=== PATIENT | female | born 1970 | race Caucasian/White ===

== ENCOUNTER 2021-01-03 13:34 | Outpatient (CLI) | payer OTHER ==
--- NOTE | 2021-01-03 14:06 | RAD ---
EXAM: Two views chest PROVIDED CLINICAL HISTORY: Diagnosis of Covid November 2020. Exam is performed for evaluation of Covid pneumonia. COMPARISON: None FINDINGS: Cardiac silhouette and pulmonary vasculature are within normal limits. The lungs are clear. The osse ous structures have a normal appearance. IMPRESSION: No acute cardiopulmonary process.
== END 2021-01-03 13:35 | disposition home or self-care (01) ==
LOC: SCSRAD 13:34
DX: U07.1 COVID-19 (principal)
CPT/HCPCS: 71046